=== PATIENT | male | born 1965 | race Two or more races ===

== ENCOUNTER 2025-03-11 09:24 | Inpatient (IN) | payer SELFPAY ==
[~2025-03-11] VITALS: Ht 175.3 cm; Wt 69.7 kg
--- NOTE | 2025-03-11 09:37 | ED.PDOC ---
History of Present Illness Chief Complaint: Rib Pain Time Seen by MD: 09:31 Allergies: Coded Allergies: Shellfish Allergy (Verified Allergy, Unknown, 03/11/25) Mode of Arrival: Ambulatory EKG EKG : Comments Rate of 82 sinus rhythm no significant ST changes X-Ray, Labs, Meds, VS Vital Signs Date Time Temp Pulse Resp B/P (MAP) Pulse Ox O2 Delivery O2 Flow Rate FiO2 03/11/25 09:54 82 03/11/25 09:27 98.3 63 18 129/81 97 98.3 SEPSIS Sepsis Screen Date sepsis recognized/suspect: Mar 11, 2025 Time Sepsis recognized/suspect: 928 Recent Procedure: No On Antibiotic Therapy: No Respiratory Rate >20: No Heart Rate >90: No Temp<36 C (96.8 F) or >38.3 C: No SBP <90 or MAP <65 mmHG: No New Acute Mental Status Change: No Is the patient on CPAP, BIPAP,: No Physician Orders Electrocardigram (03/11/25 09:31) Chest Two Views Routine (03/11/25 10:10) Complete Blood Count (03/11/25 10:10) Basic Metabolic Panel (03/11/25 10:10) Troponin-I Hs (03/11/25 10:10) Troponin-I Hs (03/11/25 11:10) Troponin-I Hs (03/11/25 13:10) Acetaminophen Tablet (Tylenol Tablet) (03/11/25 10:30) Vital Signs Date Time Temp Pulse Resp B/P (MAP) Pulse Ox O2 Delivery O2 Flow Rate FiO2 03/11/25 09:54 82 03/11/25 09:27 98.3 63 18 129/81 97 98.3 I personally scribed for RICHARD HANNON MD ([email or web address]) on 03/11/25 at 10:19. Electronically submitted by Omega Perdomo ([email or web address]). RICHARD HANNON MD Mar 11, 2025 09:37
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
[2025-03-11] MEDS: ACETAMINOPHEN 325 MG TAB PO ONE (10:43)
--- NOTE | 2025-03-11 10:58 | DVH ---
XY CHEST TWO VIEWS ROUTINE CLINICAL HISTORY: ro pna COMPARISON: None TECHNIQUE: Frontal and lateral view of the chest was obtained FINDINGS: Lines and Tubes: None Lungs: No focal consolidation. Pleura: No effusion. No pneumothorax. Cardiomediastinal contours: Unremarkable Bones: No acute osseous abnormality. IMPRESSION: No acute cardiopulmonary disease.
[2025-03-11 11:08] LABS: Hematocrit 40.7 % (41.0-53.0); Hemoglobin 14.4 g/dL (13.5-17.5); Mean Corpuscular Hemoglobin 33.7 pg (28.0-32.0); Mean Corpuscular Volume 95.0 fL (80.0-100.0); Nucleated Red Blood Cells % 0.0 %
[2025-03-11 11:13] LABS: Chloride 105 mmol/L (98-107); Potassium 4.2 mmol/L (3.5-5.1); Sodium 140 mmol/L (136-145)
[2025-03-11 11:14] LABS: Anion Gap 12 (5-15); Calcium 9.7 mg/dL (8.7-10.4); Carbon Dioxide 23 mmol/L (20-31)
[2025-03-11 11:19] LABS: BUN/Creatinine Ratio 14.1 (10.0-20.0); Blood Urea Nitrogen 14 mg/dL (9-23); Glucose 101 mg/dL (74-106)
--- NOTE | 2025-03-11 12:58 | ECG ---
[facility] Test Date: 2025-03-11 Test Time: 09:35:29 Pat Name: RODERICK WHATLEY Department: ED Room: 0223T Gender: M It Applications Analyst: vera : 1965 Requested By: RICHARD HANNON Order Number: [id number] Reading MD: Asad Taylor Measurements Intervals [place] Rate: 82 P: 78 VT: 145 QRS: 51 QRSD: 102 T: 61 QT: 360 QTc: 421 Interpretive Statements Sinus rhythm Artifact in lead(s) V4,V5 Electronically Signed On 03-12-2025 20:37:54 PDT by Asad Taylor Please click the below link to view image of tracing.
--- NOTE | 2025-03-11 15:08 | DVH ---
Clinical History: pain Rule out DVT Comparison: None Technique: Duplex Doppler evaluation of the deep venous system of the left lower extremity from the common femor al vein to the popliteal vein including color Doppler and spectral/pulsed waveform analysis was perfo rmed. Findings: The common femoral vein demonstrates appropriate compressibility and waveform variability. There is compressibility/patency of the great saphenous vein at the proximal thigh. The femoral vein demonstrates appropriate compressibility and waveform variability. The deep femoral vein demonstrates appropriate compressibility and waveform variability. The popliteal vein demonstrates appropriate compressibility and waveform variability. There is normal compressibility at the tibioperoneal trunk. Impression: No leftdeep venous thrombosis. If clinical concern/symptoms persist or worsen, short-interval follow-up study is suggested.
[2025-03-11] MEDS: ENOXAPARIN SOD 40 MG/0.4 ML SYRINGE SC SCH (16:45)
[2025-03-11] MEDS ORDERED: NITROGLYCERIN 0.4 MG SL TAB SL PRN ×2 (16:45)
[2025-03-11] MEDS ORDERED: ONDANSETRON HCL 4 MG/2 ML VIAL IV PRN (16:45)
[2025-03-11] MEDS ORDERED: MORPHINE SULFATE 4 MG/ML SYR/VIAL IV PRN ×2 (16:45→17:15)
--- NOTE | 2025-03-11 16:45 | DVHHP2 ---
History of Present Illness Reason for Visit: Chest pain History of Present Illness Kem Arriaza is a 59-year-old male with past medical history of hernia repair and right knee surgery who presents to the ED with chest pain that started 1 week ago, reports that it has been getting worse over the last several days states that the pain is 10/10 stabbing like and constant. He reports that he passed out on Friday NS family forced him to come to the ER. He also reports that he vomited 3 times on Friday and noticed a streak of blood in 1 of them. However he states today he did not see any blood, denies any hematuria, denies hematemesis or melena. Patient reports that usually travels to [place] the last time was a year ago to visit his daughter. He denies any phlegm production. Patient also reports that the last few days he has been unable to hold any food down. Per ED reports he reports that he had a cough with runny nose, body aches, vomiting, and diarrhea. Patient denies any recent travels, recent sick contacts, recent ingestion of spoiled food, recent trauma or injury, shortness of breath, fever, chills, lightheadedness, weakness, dizziness, abdominal pain, or urinary symptoms. Past Surgical History: Hernia Repair, Other (Right knee surgery) Family History: Other (Dad of Alzheimer's and mom living has GI issues.) Smoke: No ALCOHOL: none Drugs: Marijuana Lives: Alone Domestic Violence: Neg Review of Systems Constitutional: Yes: Other (Body aches) Respiratory: Other (Runny nose) Cardiovascular: Chest Pain Gastrointestinal: Vomiting, Diarrhea Musculoskeletal: other (Rib pain) Allergies: Coded Allergies: Shellfish Allergy (Verified Allergy, Unknown, 03/11/25) Exam Vital Signs Vital Signs Date Time Temp Pulse Resp B/P (MAP) Pulse Ox O2 Delivery O2 Flow Rate FiO2 03/11/25 10:46 82 18 96 Room Air 03/11/25 10:46 98.1 124/81 (95) 98.1 General Appearance: Alert, Oriented X3, Cooperative, No acute distress HEENT: Atraumatic, PERRLA, EOMI, Mucous membr. moist/pink Respiratory: Normal air movement Cardiovascular: Regular rate, Normal S1, Normal S2 Abdominal: Normal bowel sounds, Soft Extremities: Normal pulses Skin: No significant lesion Neuro: Normal gait, Normal speech, Strength at 5/5 X4 ext, Normal tone, Sensation intact Psych/Mental Status: Mental status NL, Mood NL Labs/Xrays Labs Test 03/11/25 13:21 03/11/25 10:22 Range/Units Troponin I High Sensitivity 22 </=54 ng/L White Blood Count 14.7 H 4.4-10.8 10^3/uL Red Blood Count 4.29 L 4.5-5.90 10^6/uL Hemoglobin 14.4 13.5-17.5 g/dL Hematocrit 40.7 L 41.0-53.0 % Mean Corpuscular Volume 95.0 80.0-100.0 fL Mean Corpuscular Hemoglobin 33.7 H 28.0-32.0 pg Mean Corpuscular Hemoglobin Concent 35.5 32.0-36.0 g/dL Red Cell Distribution Width 13.1 11.8-14.3 % Platelet Count 359 140-450 10^3/uL Mean Platelet Volume 7.2 6.9-10.8 fL Neutrophils (%) (Auto) 72.2 37.0-80.0 % Lymphocytes (%) (Auto) 17.5 10.0-50.0 % Monocytes (%) (Auto) 9.8 0.0-12.0 % Eosinophils (%) (Auto) 0.2 0.0-7.0 % Basophils (%) (Auto) 0.3 0.0-2.0 % Neutrophils # (Auto) 10.6 H 1.6-8.6 10 ^3/uL Lymphocytes # (Auto) 2.6 0.4-5.4 10 ^3/uL Monocytes # (Auto) 1.4 H 0-1.3 10 ^3/uL Eosinophils # (Auto) 0 0-0.8 10 ^3/uL Basophils # (Auto) 0.1 0-0.2 10 ^3/uL Nucleated Red Blood Cells 0.0 % D-Dimer, Quantitative 0.58 H 0.0-0.49 mg/L FEU Sodium Level 140 136-145 mmol/L Potassium Level 4.2 3.5-5.1 mmol/L Chloride Level 105 98-107 mmol/L Carbon Dioxide Level 23 20-31 mmol/L Anion Gap 12 5-15 Blood Urea Nitrogen 14 9-23 mg/dL Creatinine 0.99 0.700-1.30 mg/dL Glomerular Filtration Rate Calc 87 >90 mL/min BUN/Creatinine Ratio 14.1 10.0-20.0 Serum Glucose 101 74-106 mg/dL Calcium Level 9.7 8.7-10.4 mg/dL Clinical History: pain Rule out DVT Comparison: None Technique: Duplex Doppler evaluation of the deep venous system of the left lower extremity from the common femoral vein to the popliteal vein including color Doppler and spectral/pulsed waveform analysis was performed. Findings: The common femoral vein demonstrates appropriate compressibility and waveform variability. There is compressibility/patency of the great saphenous vein at the proximal thigh. The femoral vein demonstrates appropriate compressibility and waveform variability. The deep femoral vein demonstrates appropriate compressibility and waveform variability. The popliteal vein demonstrates appropriate compressibility and waveform variability. There is normal compressibility at the tibioperoneal trunk. Impression: No leftdeep venous thrombosis. XY CHEST TWO VIEWS ROUTINE CLINICAL HISTORY: ro pna COMPARISON: None TECHNIQUE: Frontal and lateral view of the chest was obtained FINDINGS: Lines and Tubes: None Lungs: No focal consolidation. Pleura: No effusion. No pneumothorax. Cardiomediastinal contours: Unremarkable Bones: No acute osseous abnormality. IMPRESSION: No acute cardiopulmonary disease. SEPSIS Sepsis Screen Date sepsis recognized/suspect: Mar 11, 2025 Time Sepsis recognized/suspect: 928 Recent Procedure: No On Antibiotic Therapy: No Respiratory Rate >20: No Heart Rate >90: No Temp<36 C (96.8 F) or >38.3 C: No SBP <90 or MAP <65 mmHG: No New Acute Mental Status Change: No Is the patient on CPAP, BIPAP,: No Physician Orders Chest Two Views Routine (03/11/25 10:10) Lt Lower Dvt (03/11/25 14:15) Nm Vq Scan (03/11/25 15:30) Blood Culture (03/11/25 15:33) Vital Signs Date Time Temp Pulse Resp B/P (MAP) Pulse Ox O2 Delivery O2 Flow Rate FiO2 03/11/25 10:46 82 18 96 Room Air 03/11/25 10:46 98.1 82 18 124/81 (95) 96 98.1 03/11/25 09:54 82 03/11/25 09:27 98.3 63 18 129/81 97 98.3 Laboratory Tests Test 03/11/25 10:22 White Blood Count 14.7 10^3/uL (4.4-10.8) H Medications Medications Dose Ordered Sig/Janae Route Start Time Stop Time Status Last Admin Dose Admin Aspirin 162 mg ONCE ONCE PO 03/11/25 10:15 03/11/25 10:16 DC 03/11/25 10:42 162 MG Ceftriaxone Sodium 50 ml @ 100 mls/hr ONCE ONCE IV 03/11/25 15:45 03/11/25 16:14 DC 03/11/25 16:08 100 MLS/HR Assessment/Plan Assessment/Plan Assessment Chest pain Leukocytosis unclear etiology Intractable vomiting and diarrhea Myalgias Marijuana use History of hernia repair History of right knee surgery Plan Admit to tele Antiemetics Pain management Aspirin + statin Chest x-ray EKG Troponin noted negative x3 Lower extremity ultrasound IV antibiotics-ceftriaxone Blood cultures Urine cultures UA UDS ACS workup Echo ordered D-dimer noted Nuclear med V/Q scan Diet Home medications reconciled DVT prophylaxis-Lovenox PUD prophylaxis-PPIs Discussed plan of care with patient and nurse Counseled patient on cessation of marijuana use [id number] Behavior change smoking greater than 10 minutes about use of other options also gave option of nicotine patch 24775 Preventive counseling healthy eating habits, physical activity, and regular checkups Plan discussed with: Patient Date of Service: Mar 11, 2025 Billing Provider: CONCETTA MONTAÑO Common Visit Codes: 40501-MAENFQY INP/OBS CARE (HIGH) Secondary Visit Codes: 95154-[id number] COUNSELING IND CONCETTA MONTAÑO Mar 11, 2025 16:45
--- NOTE | 2025-03-11 17:43 | DVH ---
NUCLEAR MEDICINE VENTILATION/PERFUSION LUNG SCAN. INDICATION: PULMONARY EMBOLISM COMPARISON: None TECHNIQUE: Following intravenous demonstration of 3.0 millicuries of technetium 99m MAA, and inhala tion of 4.6 mCi of Xe 133 scintigrams were obtained in multiple projections of the lungs. FINDINGS: There is normal uptake of radionuclide on both the ventilation and perfusion portions of the examinat ion. No mismatched perfusion defects are demonstrated. Uptake is normally homogeneous. IMPRESSION: Low probability for PE.
[2025-03-11 18:00] VITALS: PULSE 78; RESP 18; O2SAT 97
[2025-03-11 19:10] LABS: COVID19 ANTIGEN SOFIA FIA NEGATIVE (NEGATIVE)
[2025-03-11] MEDS: ATORVASTATIN 20 MG TAB PO SCH (22:00)
[2025-03-12 02:05] LABS: Urine Protein, UAD Negative (Negative)
[2025-03-12 02:22] LABS: Cannabinoid Screen, Urine Pos (NEGATIVE)
[2025-03-12 02:34] LABS: Amphetamine Screen, Urine Neg (NEGATIVE); Barbiturate Scree,Urine Neg (NEGATIVE); Benzodiazephine Screen, Urine Neg (NEGATIVE); Cocaine Screen, Urine Neg (NEGATIVE); Opiate Scree,Urine Neg (NEGATIVE); Phencyclidine Screen, Urine Neg (NEGATIVE)
[2025-03-12 03:06] VITALS: BP 109/57; PULSE 60; RESP 22; TEMP 99.3; O2SAT 95
[2025-03-12 05:00] VITALS: BP 110/64; PULSE 60; RESP 18; TEMP 98; O2SAT 96
[2025-03-12 07:08] LABS: Hematocrit 36.8 % (41.0-53.0); Hemoglobin 13.0 g/dL (13.5-17.5); Mean Corpuscular Hemoglobin 33.7 pg (28.0-32.0); Mean Corpuscular Volume 95.2 fL (80.0-100.0); Nucleated Red Blood Cells % 0.0 %
[2025-03-12 07:19] LABS: Anion Gap 9 (5-15); Calcium 9.1 mg/dL (8.7-10.4); Carbon Dioxide 26 mmol/L (20-31); Chloride 106 mmol/L (98-107); Potassium 4.6 mmol/L (3.5-5.1); Sodium 141 mmol/L (136-145)
[2025-03-12 07:25] LABS: BUN/Creatinine Ratio 17.9 (10.0-20.0); Blood Urea Nitrogen 17 mg/dL (9-23); Magnesium 2.0 mg/dL (1.6-2.6); Triglycerides 80 mg/dL (< 150)
[2025-03-12 07:26] LABS: Cholesterol 107 mg/dL (< 200)
[2025-03-12 07:32] LABS: Glucose 110 mg/dL (74-106); HDL Cholesterol 25 mg/dL (40-59)
[2025-03-12 08:00] VITALS: PULSE 58; PULSE 61; RESP 16; O2SAT 95
[2025-03-12 09:00] VITALS: BP 113/78; PULSE 58; RESP 16; TEMP 97.9; O2SAT 95
[2025-03-12 13:00] VITALS: BP 135/90; PULSE 58; RESP 17; TEMP 98.9; O2SAT 97
--- NOTE | 2025-03-12 15:36 | DVHDS2 ---
Discharge Summary Date of Admission Mar 11, 2025 at 16:37 Date of Discharge: Mar 12, 2025 Labs/Diagnostic Data: Laboratory Results Test 03/12/25 06:24 03/11/25 23:59 03/11/25 18:30 03/11/25 13:21 White Blood Count 12.1 10^3/uL (4.4-10.8) Red Blood Count 3.87 10^6/uL (4.5-5.90) Hemoglobin 13.0 g/dL (13.5-17.5) Hematocrit 36.8 % (41.0-53.0) Mean Corpuscular Volume 95.2 fL (80.0-100.0) Mean Corpuscular Hemoglobin 33.7 pg (28.0-32.0) Mean Corpuscular Hemoglobin Concent 35.4 g/dL (32.0-36.0) Red Cell Distribution Width 12.9 % (11.8-14.3) Platelet Count 328 10^3/uL (140-450) Mean Platelet Volume 6.9 fL (6.9-10.8) Neutrophils (%) (Auto) 71.3 % (37.0-80.0) Lymphocytes (%) (Auto) 19.0 % (10.0-50.0) Monocytes (%) (Auto) 8.7 % (0.0-12.0) Eosinophils (%) (Auto) 0.6 % (0.0-7.0) Basophils (%) (Auto) 0.4 % (0.0-2.0) Neutrophils # (Auto) 8.6 10 ^3/uL (1.6-8.6) Lymphocytes # (Auto) 2.3 10 ^3/uL (0.4-5.4) Monocytes # (Auto) 1.0 10 ^3/uL (0-1.3) Eosinophils # (Auto) 0.1 10 ^3/uL (0-0.8) Basophils # (Auto) 0 10 ^3/uL (0-0.2) Nucleated Red Blood Cells 0.0 % Sodium Level 141 mmol/L (136-145) Potassium Level 4.6 mmol/L (3.5-5.1) Chloride Level 106 mmol/L (98-107) Carbon Dioxide Level 26 mmol/L (20-31) Anion Gap 9 (5-15) Blood Urea Nitrogen 17 mg/dL (9-23) Creatinine 0.95 mg/dL (0.700-1.30) Glomerular Filtration Rate Calc 92 mL/min (>90) BUN/Creatinine Ratio 17.9 (10.0-20.0) Serum Glucose 110 mg/dL (74-106) Calcium Level 9.1 mg/dL (8.7-10.4) Magnesium Level 2.0 mg/dL (1.6-2.6) Troponin I High Sensitivity 20 ng/L (</=54) Triglycerides Level 80 mg/dL (< 150) Cholesterol Level 107 mg/dL (< 200) LDL Cholesterol 73 mg/dL (< 100) HDL Cholesterol 25 mg/dL (40-59) Urine Color Yellow (Yellow) Urine Clarity Clear (Clear) Urine pH 5.5 (5.0-9.0) Urine Specific [place] 1.027 (1.001-1.035) Urine Protein Negative (Negative) Urine Ketones Negative (Negative) Urine Blood Trace /uL (Negative) Urine Nitrite Negative (Negative) Urine Bilirubin Negative (Negative) Urine Urobilinogen Normal mg/dL (Negative) Urine Leukocyte Esterase Negative /uL (Negative) Urine RBC 3 /hpf (0 - 3) Urine Microscopic WBC 1 /HPF (0-3) Urine Squamous Epithelial Cells Few /hpf (<5) Urine Bacteria None seen /hpf (None Seen) Urine Mucus Few (None Seen) Urine Glucose Normal mg/dL (Normal) Urine Opiates Screen Neg (NEGATIVE) Urine Fentanyl Screen Neg (NEGATIVE) Urine Barbiturates Screen Neg (NEGATIVE) Urine Phencyclidine Screen Neg (NEGATIVE) Urine Amphetamines Screen Neg (NEGATIVE) Urine Benzodiazepines Screen Neg (NEGATIVE) Urine Cocaine Screen Neg (NEGATIVE) Urine Cannabinoids Screen Pos (NEGATIVE) Influenza Type A Antigen Negative (Negative) Influenza Type B Antigen Negative (Negative) SARS-CoV-2 Antigen (Rapid) Negative (NEGATIVE) Thyroid Stimulating Hormone (TSH) 0.47 uIU/mL (0.55-4.78) Test 03/11/25 10:22 D-Dimer, Quantitative 0.58 mg/L FEU (0.0-0.49) Hemoglobin A1c 5.1 % A1C (<5.7) Free Thyroxine (T4) Calculated 1.43 ng/dL (0.89-1.76) Other Laboratory Tests 03/12/25 06:24 Final Diagnosis/Problems List viral PNA Discharge Disposition: Home Discharge Instruct/Medications Diet: Regular Activity: No Restrictions, As Tolerated Follow Up/Referral: [facility] 03/18 dr gale Discharge Statement: "Patient was advised to return to the ER or call 911 if any headaches, dizziness, shortness of breath, chest pain, abdominal pain, bleeding, fevers, or worsening of medical condition. Patient was counseled about treatment plan, medications, possible side effects, patientverbalized understanding. All questions were answered to the best of my ability. This discharge took greater then 30 minutes in planning, reviewing documentation, counseling the patient, and discussing with other team members." ASSESSMENT ASSESSMENT Assessment viral PNA Date of Service: Mar 12, 2025 Billing Provider: EMILY THOMAS MD Common Visit Codes: 98760-QZU/OBS DISCH DAY >30min EMILY THMOAS MD Mar 12, 2025 15:36
[2025-03-12 16:14] VITALS: BP 135/90; PULSE 58; RESP 17; TEMP 98.9; O2SAT 97
--- NOTE | 2025-03-13 20:13 | DVHSR ---
APPROVED REPORT EXAM: Two-dimensional and M-mode echocardiogram with Doppler and color Doppler. Blood Pressure: 110/64 mmHg INDICATION Chest Pain RISK FACTORS Height: 5'9", Weight: 153 DIMENSIONS LVDd5.1 (3.8-5.7cm)LA (2D)3.4 (1.9-4.0cm)Aortic Root3.3 (2.0-3.7cm) LVDs3.5 (2.5-4.0cm)LA (MM) (1.9-4.0cm)Aortic Cusp Exc1.7 (1.5-2.0cm) EF (%) 60.0 (55-70%)Rt. Atrium4.8 (1.9-4.0cm)Asc. Aorta cm IVSd0.8 (0.7-1.1cm)RV (D)4.5 (1.8-2.4cm) PWd0.9 (0.7-1.1cm) Mitral Valve MitralMitral Stenosis E wave0.72m/sMV Mean GR.mmHg A wave0.57m/sMV Peak GR.mmHg E/A ratio1.32D MVAcm2 DECEL [id number] 1/2 Tim[place] Aortic Valve Aortic ValveAortic Stenosis V11.04m/Win Mean GR.4mmHg V21.41m/Win Peak GR.8mmHg LVOT Diameter2.0 (1.8-2.4cm)Doppler AVA2.32cm2 Other Information Technically limited study due to body habitus. Conclusion NORMAL LV EF IS 65% MODERATELY DILATED RV AND RA NORMAL VALVES NO EFFUSION
== END 2025-03-12 16:40 | disposition home or self-care (01) | DRG 195 ==
LOC: ER 09:24 → OVERFLOW 16:37 → TELE-CENTR 03-12 02:46
DX: J12.9 Viral pneumonia, unspecified (principal); Z20.822 Contact with and (suspected) exposure to COVID-19; Z63.4 Disappearance and death of family member; Z82.0 Family history of epilepsy and other diseases of the nervous system; Z91.013 Allergy to seafood
CPT/HCPCS: 36415; 71046; 78582; 80048; 80061; 80307; 81001; 83036; 83735; 84439; 84443; 84484; 85025; 85379; 87040; 87086; 87426; 87804; 93005; 93306; 93971; 99291; G0378